=== PATIENT | male | born 1975 | race Caucasian/White ===

== ENCOUNTER 2021-11-05 15:51 | Emergency (ER) | payer MEDICAID ==
[~2021-11-05] VITALS: Ht 185.4 cm; Wt 86.0 kg
--- NOTE | 2021-11-05 16:42 | NUR ---
Introduced self to pt.
--- NOTE | 2021-11-05 16:46 | NUR ---
Pt unsure if he had + LOC. Pt states his midback between shoulder blades hurts, neck, head, and hurts to breathe (a little). States the accident "rang his mckay a bit"
--- NOTE | 2021-11-05 17:50 | NUR ---
Mentioned pt's case to ER physician and charge nurse. Unsure if imaging should be ordered ahead of pt being seen.
--- NOTE | 2021-11-05 19:11 | NUR ---
Took over care from Lavelle Durand. Pt laying supine in bed. Just came back from CT. No distress.
[2021-11-05 20:26] VITALS: BP 151/89
[2021-11-05] MEDS ORDERED: CYCL-1 PO (20:28)
[2021-11-05] MEDS ORDERED: IBUP-1986 PO (20:28)
[2021-11-05] MEDS ORDERED: orphenadrine citrate 60mg/2ml inj. IM ONE (20:30)
[2021-11-05] MEDS ORDERED: ketorolac trometh. 30mg/ml inj. IM ONE (20:30)
== END 2021-11-05 20:56 | disposition home or self-care (01) ==
LOC: ER 15:52
DX: H11.31 Conjunctival hemorrhage, right eye (principal); G89.29 Other chronic pain; F17.200 Nicotine dependence, unspecified, uncomplicated; Z72.89 Other problems related to lifestyle; Z60.2 Problems related to living alone; W19.XXXA Unspecified fall, initial encounter; Y93.89 Activity, other specified; Y92.89 Other specified places as the place of occurrence of the external cause; Y99.8 Other external cause status
CPT/HCPCS: 70450; 72125; 96372; 99285; J1885; J2360

== ENCOUNTER 2025-06-15 20:20 | Emergency (ER) | payer MEDICAID ==
[~2025-06-15] VITALS: Ht 185.4 cm; Wt 98.1 kg
[~2025-06-15 20:20] MED LIST: CYCL-1 PO; IBUP-1986 PO
--- NOTE | 2025-06-15 21:34 | Physician Documentation ---
History of Present Illness ~ Chief Complaint: Arm Pain Stated Complaint: RIGHT ARM INFECTION Time Seen by MD: 21:11 OK to notify your PCP?: Yes Source: patient Mode of Arrival: POV Exam Limitations: no limitations HPI This is a 50-year-old male who comes in here for pain and swelling of the right elbow. 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 He says now he has redness and swelling and pain to the area. The pain in his worse with a movement and range of motion of the elbow. Last Tdap unknown. He denies fevers or chills. Tetanus within 5 years: No Medication Reconciliation Allergies: Coded Allergies: No Known Allergies (Unverified , 11/05/21) Scheduled Cyclobenzaprine* (Cyclobenzaprine*), 1 TAB PO Q8H Ibuprofen (Ibuprofen), 1 TAB PO Q8H Past Medical History Past Medical History: No Pertinent History Alcohol Use: Occasionally Drug Use: none Lives with: Alone Lives In: Home Occupation: employed Physical Exam Vital Signs: Temperature: 98.3, Source: Oral, Heart Rate: 79, Respiratory Rate: 18, BP: 102/67, Pulse Oximetry: 94, Weight: 98.100 Oxygen Flow Rate: 0 Pulse Oximetry Reflects: adequate oxygenation General Appearance: alert, WD/WN, no apparent distress Elbow/Forearm To inspection of the right upper extremity the patient has that has erythema and edema overlying the olecranon. No obvious fluctuance with the area of the olecranon bursa. There is edema to the dorsal elbow. It does not wrapped circumferentially around the elbow joint itself. The patient is able to flex extend pronate and supinate the right elbow and forearm however he does complain of pain. No ascending lymphangitis. Bilateral radial pulses 2+ and equal. Bilateral [employer] libr[employer] 5/5 and equal. Cap refill less than 2 seconds and brisk on the digits of the right hand. Progress Results/Orders Results/Orders Orders - SHIRAZ OTTO Elbow, Complete (3vw Min) (06/15/25 21:28) Completed Orders - SHIRAZ OTTO Elbow, Complete (3vw Min) (06/15/25 21:28) Tetanus/Pertuss/Diph Acell/Pf (Boostrix (06/15/25 21:25) Ceftriaxone Im Kit W/Lidocaine (Rocephin (06/15/25 21:25) Sulfamethox/Trimetho. Ds Tab (Septra Ds (06/15/25 21:25) Vital Signs 06/15/25 20:52 Temp 98.3 Pulse 79 Resp 18 B/P (MAP) 102/67 Pulse Ox 94 O2 Flow Rate 0 Medical Decision Making Additional information obtaine: N/A Findings X-ray of the right elbow did not show evidence of bony derangement. That has some soft tissue swelling. No gas in his sounds tissue. I gave the patient Rocephin 1 g IM here and Bactrim DS two tabs p.o.. We will continue with the Keflex and Bactrim for home with the instructions to her follow up with the primary care physician for recheck in the next one or two days. If he has worsening of his symptoms you should return to the ER. General Diff Dx:Considerations: Include: Abrasion, Contusion, Fracture, Hematoma, Laceration, Malunion, Neurovascular injury, Open fracture, Sprain, Ulcer, Other Shoulder Diff Dx:Consideration: Include: AC separation, Adhesive capsulitis, Arthritis, Bicipital tendonitis, Calcific tendonitis, Cervical disc disease, Contusion, Dislocation, Fracture-humerus, Fracture-scapula, Fracture-clavicle, GB disease, Hematoma, Impingement syndrome, Myocardial infarction, Neurovascular injury, Open fracture-humerus, Open fracture-scapula, Open fracture-clavicle, Rotator cuff injury, SC dislocatoin, Sprain, Subacromial bursitis, Other Elbow Diff Dx:Considerations: Include: Abrasion, Arthritis, Contustion, DJD, Fracture-humerus, Fracture-radial head, Fracture-radius, Fracture-ulna, Gout, Hematoma, Laceration, Neurovascular injury, Olecranon bursitis, Open fracture, Osteomyelitis, Radial head subluxation, Rheumatoid arthritis, Septic, Sprain, Ulcer, Other Wrist Diff Dx:Considerations: Include: Abrasion, Arthritis, DJD, Gout, Rheumatoid, Septic, Carpal tunnel snydrome, Contusion, Dislocation, Fracture- carpal, Fracture-radius, Fracture-ulna, Ganglion, Laceration, Neurovascular injury, Open fracture, Strain, Other Hand Diff Dx:Considerations: Include: Abrasion, Arthritis, Contusion, DJD, Felon, Fracture-carpal, Fracture-metacarpal, Fracture-phalynx, Fracture-radius, Fracture-ulna, Gout, Hematoma, Herpetic iftikhar, Laceration, Neurovascular injury, Open fracture, Paronychia, Rheumatoid arthritis, Septic, Sprain, Subungual hematoma, Tenosynovitis, Volar plate injury, Cellulitis, Malunion, Other Finger Diff Dx:Considerations: Include: Abrasion, Cellulitis, Contusion, Dislocation, Fracture, Hematoma, Laceration, Neurovascular injury, Open fracture, Subungual hematoma, Other Additional Comment Right upper extremity cellulitis. Olecranon bursitis. Septic bursitis. Gout. Departure Disposition: HOME / SELF CARE / HOMELESS Impression: Primary Impression: Cellulitis of right upper extremity Condition: Stable Discharge Instructions: Cellulitis, Adult Additional Instructions: Start on the oral antibiotics tomorrow. Elevate the arm frequently to help reduce swelling. Take ibuprofen for pain. Follow up with the your primary care physician for recheck in the next two days. If you have any worsening or concerning symptoms you can return to the ER. Referrals: NO PRIMARY CARE PROVIDER (PCP) Prescriptions Ibuprofen (Ibu) 600 Mg Tablet 1 TAB PO Q6H for 10 Days, #40 TAB 0 Refills Prov: SHIRAZ OTTO 06/15/25 Cephalexin*Monohydrate* (Keflex*) 500 Mg Capsule 1 CAP PO Q6H for 10 Days, #40 CAP Prov: SHIRAZ OTTO 06/15/25 Sulfamethoxazole/Trimethoprim (Bactrim Ds Tablet) 800 Mg-160 Mg Tablet 1 TAB PO Q12H for 10 Days, #20 TAB Prov: SHIRAZ OTTO 06/15/25 Signature Scribe Signature: No scribe Attestation: The note accurately reflects work and decisions made by me.Shiraz COWART 06/15/25 21:38 SHIRAZ OTTO Jun 15, 2025 21:34
[2025-06-15] MEDS ORDERED: CEPH-585 PO (21:37)
[2025-06-15] MEDS ORDERED: SULF1TAB49 PO (21:37)
[2025-06-15] MEDS ORDERED: IBUP-862 PO (21:37)
--- NOTE | 2025-06-15 21:37 | RADIOLOGY REPORT ---
CLINICAL INDICATION: ARM PAIN/WOUND RIGHT TECHNIQUE: 4 radiographic views of the right elbow were obtained. COMPARISON: None FINDINGS/IMPRESSION: There is no evidence of acute fracture or dislocation. The visualized joint space is well maintained. The alignment is anatomical. There is no radiopaque foreign body.
[2025-06-15] MEDS: TETanus/Pertussis (Acell)/Diphther VAC/PF (Tdap-Adult) 0.5ml syringe IMVAC ONE (21:48)
[2025-06-15] MEDS: sulfamethoxazole/trimethoprim DS (800/160mg) tablet PO ONE (21:49)
[2025-06-15] MEDS: CefTRIAXone 1000mg IM Kit (w/lidocaine diluent) IM ONE (21:50)
[2025-06-15 22:02] VITALS: BP 110/68; PULSE 72; RESP 18; TEMP 98.6; O2SAT 99
== END 2025-06-15 22:06 | disposition home or self-care (01) ==
LOC: ER 20:21
DX: L03.113 Cellulitis of right upper limb (principal); Z79.899 Other long term (current) drug therapy; Z72.89 Other problems related to lifestyle; Z60.2 Problems related to living alone
CPT/HCPCS: 73080; 90471; 90715; 96372; 99284; J0696